=== PATIENT | male | born 1975 | race Caucasian/White ===

== ENCOUNTER 2018-10-15 07:00 | Observation (INO) | payer OTHER, SELFPAY ==
[2018-10-15] VITALS (10 sets, daily range): BP systolic 127–161; BP diastolic 72–98; PULSE 58–92; RESP 14–18; TEMP 36.2–37.1; O2SAT 94–99; BMI 28.8; BMI 29.0
--- NOTE | 2018-10-15 07:15 | RAD_ITS ---
STUDY: X-RAY - RIGHT HAND REASON FOR EXAM: Male, 43 years old. Laceration top of hand from a hatchet. TECHNIQUE: 3 view(s) of the hand. COMPARISON: None. FINDINGS: Normal radiocarpal articulation. Normal distal radioulnar joint. Normal visualized carpal bones. Normal carpal articulations Normal carpometacarpal articulation of the thumb. Normal second through fifth carpometacarpal joints. Normal metacarpi. Normal metacarpophalangeal joint of the thumb. Normal interphalangeal joint of the thumb. Normal proximal and distal phalanges of the thumb. Normal metacarpophalangeal joints of the second through fifth fingers. Normal proximal and distal interphalangeal joints of the second through fifth fingers. Normal phalanges of the second through fifth fingers. Soft tissue swelling dorsum of hand. No radiopaque foreign bodies accounting for overlying bandage. RAD/Hand Min 3 Views IMPRESSION: Soft tissue swelling no fracture identified. Electronically Signed: Jasiel Chandler MD at 7:46 EDT , Service support ,
--- NOTE | 2018-10-15 08:55 | ED.RN ---
REQUESTED PAIN MEDS. MORPHINE & ZOFRAN OFFERED, PT DECLINED.
--- NOTE | 2018-10-15 09:34 | ED.DCSUM_ITS ---
- ER Visit Summary Date of Service: 10/15/18 Chief Complaint: [Laceration right hand] History of Present Illness: The patient is a 43 M [presents to the emergency department complaint of a laceration to his right hand that occurred prior to arrival in the emergency department. Patient states that he was using a hatchet to cut small pieces of wood for his smoker when he lost his balance and accidentally brushed his right hand against the hatchet in his left hand lacerating it. Patient is unsure of his last tetanus.] Physical Examination: [Right hand-patient has a 5 cm laceration to the dorsum of the hand over the distal third of the metacarpals. Patient has decreased ability to extend the index finger. Patient has a noted laceration of the extensor tendon for the index finger. Patient has continued to significant oozing of blood from the wound. He has normal sensation distally.] Test Results: [X-rays of the right hand obtained showed no fractures.] Emergency Department Course and Treatment: [Patient had an IV line established. Patient was started on Ancef 1 g IV. Patient was given a tetanus booster. He did not want anything for pain in the department. Case was discussed with Dr. Chris Cai who will admit patient for surgical intervention.] Treatment Plan: [Admit for surgical intervention.] Disposition: [Admit] Impression: [Right hand laceration 5 cm with extensor tendon laceration] This note was generated with Nettle dictation software. It may contain incorrect words, spelling, and punctuation that were not noted in review of the chart prior to signing ED Disposition - Plan for ED Patient: Referrals: Care Physician,No Primary [Primary Care Provider] -
[2018-10-15] MEDS: Cefazolin 1 GM/50 ML BAG IV ×2 (09:44→15:52)
[2018-10-15] MEDS: Diphth,Pertuss(Acell),Tet Vac 0.5 ML Vial IM (09:52)
[2018-10-15 11:40] LABS: Hemoglobin 15.9 g/dl (13.0-16.5); Mean Corp Hgb Conc 35.3 g/gl (32-36); Mean Corpuscular Hgb 29.6 pg (27.0-32.0); Mean Corpuscular Volume 83.6 fL (80-94); Mean Platelet Vol. 9.7 fl (6.2-12.0); Platelet Count 220 K/mm3 (150-450); RBC Distribution Width CV 12.9 % (11.6-14.6); Red Blood Count 5.38 M/mm3 (4.6-6.2); White Blood Count 7.9 K/mm3 (4.4-11.0)
--- NOTE | 2018-10-15 11:42 | HP.PCM_ITS ---
History of Present Illness Date of Admission: 10/15/18 Chief Complaint: Traumatic laceration dorsum right hand with extensor tendon injury. The patient is a 43 year old M who sustained an injury to the dorsum right hand today when he was using a hatchet to cut wood for his smoker when he lost his balance and the hatchet brushed his right hand causing the laceration. He is left hand dominant. There was some bleeding in the wound controlled with compression dressing. X-ray was done which was negative for fracture. Patient has trouble extending his right index finger. He denies any numbness in his fingers right hand. He was admitted and started on IV antibiotics in preparation for surgical intervention with exploration and repair of suspected extensor tendon injury. Past Medical History Allergies No Known Allergies Allergy (Verified 10/15/18 07:01) Home Medications: Ambulatory Orders Medication Instructions Recorded Cefadroxil [Duricef] 500 mg PO BID #28 cap 10/15/18 Oxycodone HCl/Acetaminophen 1 - 2 tab PO 4X/DAY PRN PRN 7 Days 10/15/18 [Percocet 5/325] #50 tab proMETHazine tablet [Phenergan 25 mg PO 4X/DAY PRN PRN #30 tab 10/15/18 tablet] Surgical History: appendectomy Psychiatric History: No pertinent psych hx Lives: Spouse/ Significant Other Smoking Status: Former smoker Tobacco Use: Cigarettes, Chew Alcohol: None Drugs: None - *Family History Paternal History Items: No pertinent history Review of Systems Constitutional: Denies: Fever, Weakness, Weight Change, Fatigue Eyes: Denies: Cataracts HEENT: Denies: Nasal Congestion, Sore Throat Cardiovascular: Denies: Chest Pain Respiratory: Denies: Cough, Shortness of Breath Gastrointestinal: Denies: Constipation, Diarrhea, Nausea, Vomiting Genitourinary: Denies: Frequency, Hematuria Musculoskeletal: Reports: Hand Pain, - - has laceration dorsum right hand with extensor injury to index finger.. Denies: Arm Pain, Back Pain, Leg Pain, Neck Pain Skin: Reports: Wounds - has laceration dorsum right hand with extensor injury to index finger. Neurological: Denies: Headaches, Numbness Psychiatric: Denies: Anxiety, Depression Endocrine: Denies: Polydipsia, Polyuria Hematologic/ Lymphatic: Denies: Easy Bruising, Hx of blood clot VTE Information - Inpt Only VTE Present on Admission: No VTE Mechan Device Prophylaxis: SCD's VTE Pharm Prophylaxis ordered?: No - Physical Exam General: Alert, Oriented x3 HEENT: PERRLA, EOMI Oral: Moist Mucosa Neck: Supple Lungs: Clear to auscultation Cardiovascular: Regular rate, Regular Rhythm Abdomen: Soft, Non-Distended Extremities: No clubbing, No cyanosis, Edema, Peripheral Pulses Normal, - - Has trouble extending his left index finger. Skin: Ulcer/ Wound - has laceration dorsum right hand extending from first web space to long finger near MP joints. Measures 5 cm. Some muscle bleeding noted in the wound. Compression dressing needed. Lymphatic: - - no axillary adenopathy Neurological: Cranial nerves II-XII grossly intact, - - no sensory deficits fingers right hand. Psych/Mental Status: Normal Affect, Appropriate Vital Signs Temp Pulse Resp BP Pulse Ox 98.7 F 66 18 139/90 H 97 10/15/18 10:14 10/15/18 10:14 10/15/18 10:14 10/15/18 10:14 10/15/18 10:14 Oxygen Delivery Method Room Air Weight: 196 lb 14.4 oz Body Mass Index (BMI) 29.0 Laboratory Tests Past 24 Hrs 10/15/18 10/15/18 11:28 11:28 WBC Pending RBC Pending Hgb Pending Hct Pending MCV Pending MCH Pending MCHC Pending RDW Pending RDW Differential Pending Plt Count Pending Sodium Pending Potassium Pending Chloride Pending Carbon Dioxide Pending Anion Gap Pending BUN Pending Creatinine Pending Est GFR (MDRD) Af Amer Pending Est GFR (MDRD) Non-Af Pending BUN/Creatinine Ratio Pending Glucose Pending Calcium Pending Prealbumin Pending Diagnostic Data Hand X-Ray 10/15/18 07:15 IMPRESSION: Soft tissue swelling no fracture identified. Electronically Signed: Jasiel Chandler MD at 7:46 EDT , Service support , Assessment/Plan All Active Problems Laceration of extensor structure of right index finger at hand level (Acute) Laceration of right hand involving tendon (Acute) Laceration of intrinsic muscle, fascia and tendon of right index finger at wrist and hand level, initial encounter (Acute) Injury of cutaneous sensory nerve of right upper extremity at hand level (Acute) 1. 5 cm laceration dorsum right hand with muscular bleeding extending from first web space to long finger near MP joints. 2. Suspected extensor tendon injury index finger (zone 6). 2. Possible injury to superficial sensory branch radial nerve. Ancef has been started. He was placed in a splint in the ED. Recommend operative exploration under tourniquet control. Will repair the extensor tendon. Will also look for any injury to the superficial sensory branch of the radial nerve, and if present, will be repaired as well. The bleeding muscular edges will be cauterized. May need to extend the incision to get exposure. He will have a volar splint postop. Will need to go to OT for a silastic splint and after healing, range of motion exercises, strengthening, and edema management. Surgery will be later today under general anesthesia and tourniquet control. Patient was informed of the risks and complications of the procedure including alternatives to surgery. These were discussed with the patient personally. Patient voices understanding and wishes to proceed. Some of the risks and complications that were discussed included but were not inclusive of failure to diagnose including symptom relief, pain, infection, numbness, stiffness, loss of digit, RSD (CRPS), need for further surgery, contracture, and wound healing problems. He will be discharged on antibiotics and pain medication. Code Visit OBS E&M: 27339 [facility]/hosp same date L3 - -57 Modifier ICD-10 - S61.411A, S66.320A, S66.520A
[2018-10-15 11:43] LABS: Scan Indicated on CBC? Y/N NO
[2018-10-15 12:11] LABS: Anion Gap 7 (5-15); BUN 15 mg/dL (7-18); BUN/Creat Ratio 16.3 RATIO (10-20); Calcium,Total 8.7 mg/dL (8.5-10.1); Chloride 109 mmol/L (98-107); Creatinine, Serum 0.92 mg/dL (0.70-1.30); EST Glomerular Filtration Rate 96 mL/min (>60); Est Glom Filt Rate - Afr Amer 116 mL/min (>60); Estimated Creatinine Clearance 105.67 ml/min; Glucose 100 mg/dL (74-106); Potassium 4.2 mmol/L (3.5-5.1); Prealbumin 31.5 mg/dL (20.0-40.0); Sodium Level 139 mmol/L (136-145)
[2018-10-15] MEDS: Lactated Ringers 1,000 ML 60 ML IV (12:18)
[2018-10-15] MEDS: HYDROmorphone 1 MG/ML Syringe IV (13:51)
--- NOTE | 2018-10-15 14:35 | NURSING ---
report called to Imelda in AC. pt transported off the unit at this time via bed.
--- NOTE | 2018-10-15 18:20 | OP.PCM_ITS ---
Report of Operation Date of Procedure: 10/15/18 Pre-Operative Diagnosis: 1. Laceration dorsum right hand with muscular bleeding and suspected extensor tendon injury index finger (zone 6). 2. Possible injury to superficial sensory branch radial nerve. Post-Operative Diagnosis: 1. Laceration dorsum right hand with extensor digitorum communis (EDC) tendon injury to index finger (zone 6). 2. Laceration dorsum right hand with extensor indicis proprius (EIP) tendon injury to index finger (zone 6). 3. Injury to superficial sensory branch radial nerve dorsum right hand to index finger. 4. Injury to first dorsal interosseous intrinsic muscle dorsum right hand with bleeding. 5. Injury to second dorsal interosseous intrinsic muslce dorsum right hand with bleeding. Surgery/Procedure Performed:: 1. Exploration 5 cm laceration dorsum right hand extending from first web space to long finger near MP joints. 2. Repair extensor digitorum communis (EDC) tendon injury dorsum right hand to index finger (zone 6). 3. Repair extensor indicis proprius (EIP) tendon injury dorsum right hand to index finger (zone 6). 4. Epineural repair superficial sensory branch radial nerve injury dorsum right hand to index finger. 5. Repair first dorsal interosseous intrinsic muscle injury dorsum right hand. 6. Repair second dorsal interosseous intrinsic muscle injury dorsum right hand. Description of Surgical Findings:: The patient is a 43 year old M who sustained an injury to the dorsum right hand today when he was using a hatchet to cut wood for his smoker when he lost his balance and the hatchet brushed his right hand causing the laceration. He is left hand dominant. There was some muscular bleeding in the wound controlled with compression dressing. X-ray was done which was negative for fracture. Patient has trouble extending his right index finger. He denies any numbness in his fingers right hand. He was admitted and started on IV antibiotics in preparation for surgical intervention with exploration and repair of suspected extensor tendon injury and possible sensory nerve injury. Patient was informed of the risks and complications of the procedure including alternatives to surgery. These were discussed with the patient personally. Patient voices understanding and wishes to proceed. Some of the risks and complications that were discussed included but were not inclusive of failure to diagnose including symptom relief, pain, infection, numbness, stiffness, loss of digit, RSD (CRPS), need for further surgery, contracture, and wound healing problems. Total tourniquet time - 91 minutes. piping drafter: None Type of Anesthesia:: General Specimen's removed: None. Drains: None. Estimated Blood Loss (mL): 25 ml. Description of Procedure: Patient was taken to OR in supine position and was placed under general anesthesia. The right upper extremity was prepped and draped in the usual fashion. SCD's were placed for DVT prophylaxis. Perioperative antibiotics were given intravenously. During the prep, the wound showed some evidence of arterial bleeding from the muscular edges. Under loupe magnification, sterile gauze was placed on the wound as the right arm was elevated and the Esmarch bandage was applied and the tourniquet was elevated to 250 mmHg. The first dorsal interosseous intrinsic muscle and the second dorsal interosseous intrinsic muscle were injured down to the metacarpal bone of the index finger. The metacarpal bone was intact. The areas of the arterial bleeding from the muscular edges were cauterized. Upon further dissection of the wound, I noted an injury to the extensor indicis pollicis (EIP) tendon and the extensor d igitorum communis (EDC) tendon to the index finger with the distal ends of the extensor tendons to the index finger visible. Proximally, I dissected and located the proximal end of the extensor indicis proprius (EIP) tendon. The proximal end of the extensor digitorum communis (EDC) tendon was not visible. I extended the incision proximally in a longitudinal zig zag fashion onto the wrist. Upon further dissection proximally, I located the proximal end of the extensor digitorum communis (EDC) tendon which had retracted. I located a cut end of the superficial sensory branch of the radial nerve proximally. I then dissected distally in the subcutaneous tissue and located the distal end of the superficial sensory branch of the radial nerve. The ends of the nerve were bruised and jagged and debridement was done to aid in better coaptation of the nerve repair. The proximal end of the nerve was dissected free a little bit to minimize tension on the epineural repair. The wound was irrigated with saline. The extensor tendon communis (EDC) tendon to the long finger and ring finger were intact. I then repaired the first dorsal interosseous intrinsic muscle injury and the second dorsal interosseous intrinsic muscle injury with 3-0 Vicryl figure of eight interrupted sutures. The extensor digitorum communis (EDC) tendon injury and the more ulnar extensor indicis proprius (EIP) tendon injury were repaired with 4-0 Nylon suture using modified Anderson technique. Epitendinous repair was done with 6-0 Prolene simple interrupted sutures. An epineural repair of the superficial sensory branch of the radial nerve injury with 8-0 Nylon interrupted sutures. The tourniquet was released after 91 minutes. Some residual oozing was controlled with electrocautery. The skin was then closed in a layered fashion with 5-0 Monocryl interrupted sutures for the deep dermis and subcutaneous tissue. The skin was approximated with 5-0 Nylon simple running suture. Antibiotic ointment was applied to the suture line followed by Xeroform gauze and 4x4 gauze and a Kerlix gauze for compression. 4x4 gauze was placed in the webspaces. This was followed by a volar plaster splint wrapped in Webril followed by a compression oswaldo wrap. The hand was placed in the splint with the wrist in neutral and the MP joints slightly flexed and the IP joints in extension. Patient tolerated the procedure well and was sent to PACU in satisfactory condition. Patient will be sent home on antibiotics and pain medication. Patient will followup in a week for a wound check and for discussion of the pathology report and for placement of a silastic splint by OT. The sutures will be removed in 2 weeks. After healing has occurred, the patient will need OT for range of motion exercises, strengthening, and edema management. He will keep his right hand elevated during the initial postop period. Grafts/Implants Used: None. - Complications None. - Admit VTE Documentation VTE Present on Admission: No VTE Mechan Device Prophylaxis: SCD's VTE Pharm Prophylaxis ordered?: No Code Visit Surgery Charges CPT - 86430 ICD-10 - S66.320A, S61.411A, S66.520A, S64.8x1A 40104 S66.320A, S61.411A, S66.520A, S64.8x1A 45205 S64.8x1A, S61.411A, S66.320A, S66.520A 16028 S66.520A, S61.411A, S66.320A, S64.8x1A 94952 S66.520A, S61.411A, S66.320A, S64.8x1A
--- NOTE | 2018-10-15 18:28 | PCM.DC ---
You will use the following diet at home:: No restrictions Discharge Activity: May not drive while taking narcotic pain medications., May Shower - wear plastic bag over right hand when showering. Return to work on:: 12/13/18 - tentative May shower in (days): 1 - wear plastic bag over right hand when showering. May resume sexual activity in: No Restrictions Weight Bearing Status: Weight bearing as tolerated Lifting Restrictions: no lifting with right hand. Keep extremity elevated above heart level: Right Arm Call your doctor if your incision/area has: Continuous Slow Oozing, Sudden Increased Bleeding, Increased Pain/ Swelling, Increased Redness, Foul Smelling Discharge, Swelling at the incision site Call your doctor if you observe: Fever of 101 or Higher, Coldness, Increased Pain, Shortness of breath, Chest pain, Calf discomfort, Uncontrolled pain Suture Line Care: - - after dressing removed in the office, apply antibiotic ointment to suture line daily. Change Dressing in (Days):: 7 - will change dressing in office. Allergies/Adverse Reactions: Allergies No Known Allergies Allergy (Verified 10/15/18 07:01) Medications to take at Discharge Cefadroxil [Duricef] 500 mg PO BID #28 cap 10/15/18 Oxycodone HCl/Acetaminophen [Percocet 5/325] 1 - 2 tab PO 4X/DAY PRN PRN 7 Days #50 tab 10/15/18 proMETHazine tablet [Phenergan tablet] 25 mg PO 4X/DAY PRN PRN #30 tab 10/15/18 The following prescriptions were given: Oxycodone HCl/Acetaminophen [Percocet 5/325] 1 - 2 tab PO 4X/DAY PRN PRN 7 Days #50 tab PRN Reason: Pain proMETHazine tablet [Phenergan tablet] 25 mg PO 4X/DAY PRN PRN #30 tab PRN Reason: NAUSEA/VOMITING Cefadroxil [Duricef] 500 mg PO BID #28 cap Primary Care Physician: Care Physician,No Primary [Primary Care Provider] - Test Results: Test results from this visit will be discussed in further detail at your follow-up appointment, if applicable. Please Follow Up With: Chris Cai MD When: one week. call [phone] for appt. Please Follow Up With: occupational therapy When: one week. will make appt for silastic splint. Proposed Discharge Date: 10/15/18
--- NOTE | 2018-10-15 18:32 | DCINST_ITS ---
You will use the following diet at home:: No restrictions Discharge Activity: May not drive while taking narcotic pain medications., May Shower - wear plastic bag over right hand when showering. Return to work on:: 12/13/18 - tentative May shower in (days): 1 - wear plastic bag over right hand when showering. May resume sexual activity in: No Restrictions Weight Bearing Status: Weight bearing as tolerated Lifting Restrictions: no lifting with right hand. Keep extremity elevated above heart level: Right Arm Call your doctor if your incision/area has: Continuous Slow Oozing, Sudden Increased Bleeding, Increased Pain/ Swelling, Increased Redness, Foul Smelling Discharge, Swelling at the incision site Call your doctor if you observe: Fever of 101 or Higher, Coldness, Increased Pain, Shortness of breath, Chest pain, Calf discomfort, Uncontrolled pain Suture Line Care: - - after dressing removed in the office, apply antibiotic ointment to suture line daily. Change Dressing in (Days):: 7 - will change dressing in office. Allergies/Adverse Reactions: Allergies No Known Allergies Allergy (Verified 10/15/18 07:01) Medications to take at Discharge Cefadroxil [Duricef] 500 mg PO BID #28 cap 10/15/18 Oxycodone HCl/Acetaminophen [Percocet 5/325] 1 - 2 tab PO 4X/DAY PRN PRN 7 Days #50 tab 10/15/18 proMETHazine tablet [Phenergan tablet] 25 mg PO 4X/DAY PRN PRN #30 tab 10/15/18 The following prescriptions were given: Oxycodone HCl/Acetaminophen [Percocet 5/325] 1 - 2 tab PO 4X/DAY PRN PRN 7 Days #50 tab PRN Reason: Pain proMETHazine tablet [Phenergan tablet] 25 mg PO 4X/DAY PRN PRN #30 tab PRN Reason: NAUSEA/VOMITING Cefadroxil [Duricef] 500 mg PO BID #28 cap Primary Care Physician: Care Physician,No Primary [Primary Care Provider] - Test Results: Test results from this visit will be discussed in further detail at your follow- up appointment, if applicable. Please Follow Up With: Chris Cai MD When: one week. call [phone] for appt. Please Follow Up With: occupational therapy When: one week. will make appt for silastic splint. Proposed Discharge Date: 10/15/18
[2018-10-15] MEDS: oxyCODONE 5 MG Tablet 10 MG PO ×2 (19:44→20:46)
[2018-10-15] MEDS: Acetaminophen 325 MG Tablet 650 MG PO (19:45)
== END 2018-10-15 21:24 | disposition home or self-care (01) ==
LOC: ED 08:11 → MS3 09:42
PROVIDERS: Admitting Provider Surgery; Emergency Provider Emergency Medicine; Referring Provider Surgery; Visit Provider Surgery
PROC: (CPT 26418; principal; 2018-10-15 15:15)
DX: S66.320A Laceration of extensor muscle, fascia and tendon of right index finger at wrist and hand level, initial encounter (principal); S64.21XA Injury of radial nerve at wrist and hand level of right arm, initial encounter; S66.821A Laceration of other specified muscles, fascia and tendons at wrist and hand level, right hand, initial encounter; S61.411A Laceration without foreign body of right hand, initial encounter; W27.0XXA Contact with workbench tool, initial encounter; Y93.89 Activity, other specified; Y92.9 Unspecified place or not applicable; Z23 Encounter for immunization; Z87.891 Personal history of nicotine dependence
CPT/HCPCS: 26418; 64831; 36415; 73130; 80048; 84134; 85027; 90471; 90715; 96365; 96375; 99218; 99281; J7120; G0378; J2405

== ENCOUNTER 2019-02-11 17:30 | Outpatient (RCR) | payer SELFPAY ==
[2018-10-23 15:26] VITALS: BMI 29.0
[2018-11-07 16:39] VITALS: BMI 29.0
--- NOTE | 2018-11-20 12:03 | HP.OTEVAL_ITS ---
Patient's Visit Information BAYLEE STEVENS is a 43 year old M, referred to Occupational Therapy by Chris Cai MD, with a diagnosis of . Date of Evaluation: 11/09/18 Occupational Therapist: Ayanna Mireles, DARRICK/Dandre, CHT - Subjective Subjective: Pt arrives following sx on October. Laceration dorsum right hand with extensor digitorum communis (EDC) tendon injury to index finger (zone 6). 2. Laceration dorsum right hand with extensor indicis proprius (EIP) tendon injury to index finger (zone 6). 3. Injury to superficial sensory branch radial nerve dorsum right hand to index finger. 4. Injury to first dorsal interosseous intrinsic muscle dorsum right hand with bleeding. 5. Injury to second dorsal interosseous intrinsic muslce dorsum right hand with bleeding. per Dr report. pt would like to return full use of his hand. - Objective Objective/Observation: pt demo with healing incison-. swelling and limited digit ROM of PIP and DIP. noted scar adhesions - ROM ROM Comments: no extensor lag noted at this time- - Strength Strength Comments: pt is left handed and demo a left at 95#. right cloth mercerizing supervisor strength not tested due to healing tenson - Edema PIP: right MF 7.5 right 7.0 - DASH-Disabilities of Arm, Shoulder& Hand DASH Sum: 100 - Goals Goal:100% adherence to protocol: Yes Comment: zone 6 extensor tendon repair Goal:Daily scar massage when approriate: Yes Goal:ROM equal to unaffected hand: Yes Goal:Logistics Service Representative/Pinch strength at least 75% of unaffected hand: Yes Goal:No pain with affected hand use: Yes Goal:PIP Circumferences equal to unaffected hand: Yes Goal:Full use of affected hand in daily activities including: Yes Goal:Decrease scar hypersensitivity: Yes - Rehabilitation General Assessment: Laceration dorsum right hand with extensor digitorum communis (EDC) tendon injury to index finger (zone 6). 2. Laceration dorsum right hand with extensor indicis proprius (EIP) tendon injury to index finger (zone 6). 3. Injury to superficial sensory branch radial nerve dorsum right hand to index finger. 4. Injury to first dorsal interosseous intrinsic muscle dorsum right hand with bleeding. 5. Injury to second dorsal interosseous intrinsic muslce dorsum right hand with bleeding. pt arrives to OT session in need of cusotom orthosis- therapist nafisa. ed. pt on DIP and PIP flex ext ex- (no MCP ROM at this time) will initiate wrist and MCP flex at week 4 following zone 6 protocol. pt and ed. in precaustions, scar mtg and edema control. pt demo undersanding and agrees to POC. Rehabilitation Potential: Excellent - Anticipated Interventions Anticipated Interventions: A/AAROM/PROM, Strengthening, Edema Control, Scar Care, Triggerpoint Release, Desensitization, Sensory Retraining, Wound Care, Modalities, Orthoses - Visit Plan Frequency: 1x/Week Duration: 4 Weeks TEXT: Thank you for the opportunity to evaluate your patient. For Medicare and Medicare HMO plans, please review the plan of care and approve it. It will need to be FAXED BACK to us at [phone] for Medicare purposes. Please let me know if there are questions or concerns regarding this plan of care. Physician Signature: Date:
--- NOTE | 2019-04-23 12:12 | HP.OT.NRP ---
HP - Discharge Summary - Patient Information BAYLEE STEVENS was seen in my office for initial evaluation on 11/09/18. The following Plan of Care was established for this patient: Initial Frequency: 1x/Week Initial Duration: 4 Weeks Plan: pt currently 17 weeks s/p will cont to work towards composite fist - Anticipated Interventions Anticipated Interventions: A/AAROM/PROM, Strengthening, Edema Control, Scar Care, Triggerpoint Release, Desensitization, Sensory Retraining, Wound Care, Modalities, Orthoses This patient was last seen in our office 02/11/19. Pertinent comments regarding their Occupational therapy will appear below: pt was seen for 8 OT visits- pt progressed well in therapy but was still limited with composite fist- pt was to cont with HEP to cont to improve ROM. Pt reported he was 90% better and functional with most daily tasks at last visit. Pt d/c at this time as no apts are scheduled. At this point I will be discontinuing this patient from occupational therapy. I would be happy to see this patient again in the future if found appropriate by the physician. Thank you! Ayanna Mireles, OTR/L, CHT
== END 2019-02-11 19:00 | disposition home or self-care (01) ==
LOC: OT 17:30
PROVIDERS: Referring Provider Surgery; Visit Provider Surgery
DX: S66.320D Laceration of extensor muscle, fascia and tendon of right index finger at wrist and hand level, subsequent encounter (principal); S66.52 Laceration of intrinsic muscle, fascia and tendon of other and unspecified finger at wrist and hand level; S64 Injury of nerves at wrist and hand level; S61.411D Laceration without foreign body of right hand, subsequent encounter; S66.921D Laceration of unspecified muscle, fascia and tendon at wrist and hand level, right hand, subsequent encounter
CPT/HCPCS: 97035; 97110; 97140; 97166